=== PATIENT | female | born 1960 | race Caucasian/White ===

== ENCOUNTER → 2019-05-01 | Outpatient (CLI) | payer OTHER, SELFPAY | PROVIDERS: Family Provider Internal Medicine; PCP Internal Medicine; Referring Provider Internal Medicine Rheumatology; Visit Provider Internal Medicine Rheumatology | DX: M81.0 Age-related osteoporosis without current pathological fracture (principal) | CPT/HCPCS: 36415; 82310 ==

== ENCOUNTER → 2019-11-03 09:20 | Outpatient (BNVA) | payer OTHER, SELFPAY | PROVIDERS: Family Provider Internal Medicine; PCP Internal Medicine; Visit Provider Internal Medicine Rheumatology | DX: M81.0 Age-related osteoporosis without current pathological fracture (principal) | CPT/HCPCS: 82310; 82565 ==

== ENCOUNTER 2019-11-11 15:41 | Outpatient (CLI) | payer OTHER, SELFPAY ==
[2019-11-10 14:00] VITALS: BP 115/72; PULSE 71; RESP 16; TEMP 36.6; O2SAT 98
[2019-11-10] MEDS: denosumab 60 mg SDV SUBCUT (14:10)
[2019-11-10 14:31] VITALS: BP 132/92; PULSE 88; RESP 16; TEMP 36.6; O2SAT 99
== END 2019-11-11 15:42 | disposition home or self-care (01) ==
LOC: RHEOACUTE 15:42
PROVIDERS: Family Provider Internal Medicine; PCP Internal Medicine; Visit Provider Internal Medicine Rheumatology
DX: M81.0 Age-related osteoporosis without current pathological fracture (principal)
CPT/HCPCS: 96372; J0897

== ENCOUNTER → 2020-05-16 13:30 | Outpatient (BNVA) | payer OTHER, SELFPAY | PROVIDERS: Family Provider Internal Medicine; PCP Internal Medicine; Visit Provider Internal Medicine Rheumatology | DX: M81.0 Age-related osteoporosis without current pathological fracture (principal) | CPT/HCPCS: 36415; 82310 ==

== ENCOUNTER → 2020-09-25 18:20 | Outpatient (BNVA) | payer OTHER, SELFPAY | PROVIDERS: Family Provider Internal Medicine; PCP Internal Medicine; Visit Provider Nurse Practitioner Family | DX: N39.0 Urinary tract infection, site not specified (principal); B37.3 Candidiasis of vulva and vagina | CPT/HCPCS: 81000; 87086 ==

== ENCOUNTER → 2020-12-13 16:25 | Outpatient (BNVA) | payer OTHER, SELFPAY | PROVIDERS: Family Provider Internal Medicine; PCP Internal Medicine; Visit Provider Nurse Practitioner | DX: Z20.822 Contact with and (suspected) exposure to COVID-19 (principal) | CPT/HCPCS: 87635 ==

== ENCOUNTER 2021-02-13 08:19 | Outpatient (CLI) | payer OTHER, SELFPAY ==
[2021-02-13 09:43] LABS: Calcium 8.9 mg/dL (8.5-10.5)
== END 2021-02-13 08:20 | disposition home or self-care (01) ==
LOC: ONCMED 08:22
PROVIDERS: PCP Internal Medicine; Visit Provider Internal Medicine Medical Oncology
DX: M81.0 Age-related osteoporosis without current pathological fracture (principal)
CPT/HCPCS: 36415; 82310

== ENCOUNTER 2021-02-14 06:38 | Outpatient (CLI) | payer OTHER, SELFPAY ==
[2021-02-14 08:52] LABS: Anion Gap 12.7 (5-19); Blood Urea Nitrogen 16 mg/dL (8-23); Calcium 9.1 mg/dL (8.5-10.5); Carbon Dioxide 25 mmol/L (22-29); Chloride 105 mmol/L (98-107); Glomerular Filtration Rate 85.1 mL/min (90-130); Glucose 88 mg/dL (65-115); Osmolality Calculated 289 mOsm/kg (285-295); Potassium 3.7 mmol/L (3.5-5.1); Sodium 139 mmol/L (136-145)
[2021-02-14 10:55] VITALS: BP 121/82; PULSE 63; RESP 18; TEMP 36.9; O2SAT 98
[2021-02-14] MEDS: denosumab 60 mg SDV SUBCUT (11:02)
[2021-02-14 11:16] VITALS: BP 119/78; PULSE 57; RESP 18; TEMP 37.2; O2SAT 98
== END 2021-02-14 06:39 | disposition home or self-care (01) ==
LOC: ONCMED 06:42
PROVIDERS: Internal Medicine Medical Oncology; PCP Internal Medicine; Referring Provider Internal Medicine; Visit Provider Internal Medicine
DX: M81.0 Age-related osteoporosis without current pathological fracture (principal)
CPT/HCPCS: 80048; 96372; J0897

== ENCOUNTER 2021-09-19 11:43 | Outpatient (CLI) | payer OTHER, SELFPAY ==
[2021-09-19 13:01] LABS: Albumin Level 4.4 g/dL (3.5-5.2); Calcium 9.4 mg/dL (8.5-10.5); Glomerular Filtration Rate 63.4 mL/min (90-130)
[2021-09-19 13:18] LABS: 25 Hydroxy Vitamin D 72 ng/mL (30-100)
== END 2021-09-19 11:44 | disposition home or self-care (01) ==
PROVIDERS: Internal Medicine Medical Oncology; PCP Internal Medicine; Referring Provider Internal Medicine; Visit Provider Internal Medicine
DX: Z01.89 Encounter for other specified special examinations (principal)
CPT/HCPCS: 36415; 82040; 82306; 82310; 82565

== ENCOUNTER 2021-09-20 10:56 | Outpatient (CLI) | payer OTHER, SELFPAY ==
[2021-09-20 11:08] VITALS: BP 122/79; PULSE 55; RESP 16; TEMP 36.7; O2SAT 99
[2021-09-20] MEDS: denosumab 60 mg SDV SUBCUT (11:29)
[2021-09-20 11:35] VITALS: BP 118/72; PULSE 55; RESP 16; TEMP 36.3; O2SAT 97
== END 2021-09-20 10:57 | disposition home or self-care (01) ==
LOC: ONCMED 10:56
PROVIDERS: PCP Internal Medicine; Referring Provider Internal Medicine; Visit Provider Internal Medicine
DX: M81.0 Age-related osteoporosis without current pathological fracture (principal)
CPT/HCPCS: 96372; J0897

== ENCOUNTER → 2021-10-28 14:14 | Outpatient (BNVA) | payer OTHER, SELFPAY | PROVIDERS: PCP Internal Medicine; Visit Provider Family Medicine Adult Medicine | DX: R39.9 Unspecified symptoms and signs involving the genitourinary system (principal); N39.0 Urinary tract infection, site not specified | CPT/HCPCS: 81000 ==

== ENCOUNTER 2022-03-28 10:00 | Outpatient (CLI) | payer OTHER, SELFPAY ==
[2022-03-28 10:57] LABS: Albumin Level 4.1 g/dL (3.5-5.2); Calcium 9.8 mg/dL (8.5-10.5); Creatinine Clr Calc Pharmacy 69.7301; Glomerular Filtration Rate 72.7 mL/min (90-130)
[2022-03-28 11:15] LABS: 25 Hydroxy Vitamin D > 100 ng/mL (30-100)
[2022-03-28 11:37] VITALS: BP 118/66; PULSE 56; RESP 18; TEMP 36.3; O2SAT 95
[2022-03-28] MEDS: denosumab 60 mg SDV SUBCUT (11:47)
[2022-03-28 11:56] VITALS: BP 111/75; PULSE 53; RESP 18; TEMP 36.3; O2SAT 96
== END 2022-03-28 10:01 | disposition home or self-care (01) ==
PROVIDERS: PCP Internal Medicine; Visit Provider Internal Medicine
DX: M81.0 Age-related osteoporosis without current pathological fracture (principal)
CPT/HCPCS: 36415; 82040; 82306; 82310; 82565; 96372; J0897

== ENCOUNTER 2022-11-02 08:46 | Oncology outpatient (recurring) (ONCR) | payer OTHER, SELFPAY ==
[2022-11-02 09:00] VITALS: BP 111/70; PULSE 58; RESP 16; TEMP 36.6; O2SAT 95
[2022-11-02] MEDS: denosumab 60 mg SDV SUBCUT (09:02)
== END 2022-11-09 23:59 | disposition home or self-care (01) ==
LOC: ONCMED 08:47
PROVIDERS: PCP Internal Medicine; Visit Provider Internal Medicine Medical Oncology
DX: M81.0 Age-related osteoporosis without current pathological fracture (principal)
CPT/HCPCS: 96372; J0897

== ENCOUNTER 2023-11-18 11:22 | Outpatient (CLI) | payer OTHER, SELFPAY ==
--- NOTE | 2023-11-18 11:32 | MM_ITS ---
WS: [id number] Bilateral screening 3D tomosynthesis digital mammogram, 11/18/2023 Clinical Data: SCREENING Comparison: 11/07/2022, 11/08/2021, 11/08/2020, 11/04/2019, 06/11/2018, 02/20/2017, 08/06/2016, 02/21/2016, 02/02/2015, 02/04/2014, 07/30/2013, 01/29/2013, 01/08/2013. Findings: The breast parenchymal pattern shows fibroglandular tissue. No spiculated masses or clustered calcifi cations are seen. There are no secondary signs of carcinoma. MM/[place] [id number] Impression: 1. Negative bilateral mammogram unchanged. 2. Recommend annual screening mammograms. BIRADS: 1-Negative FOLLOW UP: 1 Year Follow-up The CAD lap checker was used.
== END 2023-11-18 11:23 | disposition home or self-care (01) ==
LOC: RAD 11:23
PROVIDERS: PCP Internal Medicine; Visit Provider Advanced Practice Midwife
DX: Z12.31 Encounter for screening mammogram for malignant neoplasm of breast (principal)
CPT/HCPCS: 77063; 77067

== ENCOUNTER 2024-10-09 09:36 | Emergency (ER) | payer MEDICARE, SELFPAY ==
[2024-10-09 09:51] VITALS: BP 130/78; PULSE 55; RESP 14; O2SAT 97; BMI 24.0
--- NOTE | 2024-10-09 09:56 | ECG_ITS ---
[facility] Test Date: 2024-10-09 Pat Name: Duyen Garcia Department: Room: Gender: Female Manager Company: : 1960 Requested By: Declan Mendes Order Number: [id number] Eric MD: Cesar Alvarez M.D. Measurements Intervals [place] Rate: 51 P: -10 HI: 98 QRS: 15 QRSD: 80 T: 28 QT: 442 QTc: 411 Interpretive Statements SINUS BRADYCARDIA WITH SHORT HI INTERVAL LOW QRS VOLTAGE IN PRECORDIAL LEADS [QRS DEFLECTION < 1.0 mV IN CHEST LEADS] No previous ECG available for comparison Electronically Signed On 10-13-2024 11:46:30 CDT by Cesar Alvarez M.D. [email or web address] [id number]
--- NOTE | 2024-10-09 09:56 | XR_ITS ---
WS: [id number] Portable AP upright chest, 10/09/2024 Clinical Data: dyspnea/cough Comparison: None. Findings: No nodules, masses or effusions are seen. The heart is normal. The pulmonary vascularity is not increased. No pneumonia or pneumothorax is seen. XR/XR chest 1V portable [id number] Impression: Negative chest.
--- NOTE | 2024-10-09 10:07 | W.ED.WEAKNES ---
HPI - Weakness General: Chief complaint: Weakness Stated complaint: weakness (sent by angie) Time Seen by Provider: 10/09/24 09:47 History of Present Illness: 64-year-old female presents emergency room complaining of generalized feeling weak fatigued shaky at times. She has not had any vomiting or recent diarrhea no dysuria urgency or frequency no shortness of breath no chest pain no abdominal pain. She has had some mild sinus drainage no other symptoms no recent medication changes. Associated symptoms: Denies chest pain, chills, dysuria or fever(s) Review of Systems Const: Denies: fever(s) or chills Card: Denies: chest pain Resp: Denies: dyspnea GI: Denies: abdominal pain : Denies: dysuria, urinary frequency or urinary urgency Musc: Denies: neck pain or back pain Skin/Breast: Denies: rash PFSH ED PFSH: Social History Smoking and tobacco/nicotine status: never used tobacco/nicotine Second hand smoke exposure: No Alcohol intake: never Substance/Drug Use: never Physical Exam Const: COMMON NORMALS: no acute distress GENERAL APPEARANCE: cooperative and comfortable ORIENTATION/CONSCIOUSNESS: Yes awake, Yes oriented to person, Yes oriented to place and Yes oriented to time HENMT: COMMON NORMALS: normocephalic, atraumatic and hearing grossly normal bilaterally HEAD & SCALP: normocephalic and atraumatic Resp: COMMON NORMALS: normal respiratory effort, No retractions, No use of accessory muscles and clear to auscultation bilaterally AUSCULTATION: clear to auscultation bilaterally Cardio: COMMON NORMALS: regular rhythm and No murmurs present (Cardio) RATE: bradycardic RHYTHM: regular rhythm GI: COMMON NORMALS: Soft to palpation and No hepatosplenomegaly present AUSCULTATION: Yes normoactive bowel sounds PALPATION: Yes Soft to palpation, No Tenderness to palpation present (GI), No Guarding due to palpation present (GI) and Yes No hepatosplenomegaly present Extremity: COMMON NORMALS: normal to inspection, capillary refill normal, no clubbing, cyanosis or edema, no calf tenderness and no pedal edema Neuro: SENSORIUM/ORIENTATION: Yes oriented to person, Yes oriented to place and Yes oriented to time Skin: COMMON NORMALS: no rashes or lesions noted GENERAL SKIN EXAM: no rashes or lesions noted Course Vital Signs: Vital signs: Vital Signs Pulse Rate 49 L 10/09/24 11:30 Respiratory Rate 14 10/09/24 11:30 Blood Pressure 126/75 10/09/24 11:30 Pulse Oximetry 96 10/09/24 11:30 MDM - Weakness Medical Decision Making Patient noted to be fairly bradycardic while here. Laboratory tests are generally unremarkable. She is not anemic there is no sign of infection. We did cardiac enzymes all of which were negative EKG showed sinus bradycardia without abnormality. Will discharge patient home I suspect her symptoms are due to side effects from medications particularly the propranolol. That was started several years ago for anxiety. She reports evidently having lost little bit of weight and think that may have made her more sensitive to it or given her more side effects. She is on a low dose at this point. Would recommend that she simply stop it and follow-up with her primary care doctor. Medical Records I reviewed the patient's medical records. Lab Data I reviewed the patient's lab results. 10/09/24 10:04 10/09/24 10:04 Radiology Impressions Chest X-Ray 10/09/24 09:56 Impression: Negative chest. Laboratory Results WBC 4.65 10^3/uL (3.29-11.43) 10/09/24 10:04 RBC 4.52 10^6/uL (3.85-5.65) 10/09/24 10:04 Hgb 14.70 g/dL (11.27-16.99) 10/09/24 10:04 Hct 45.2 % (36-47) 10/09/24 10:04 MCV 100.0 fl (85-98) H 10/09/24 10:04 MCH 32.5 pg (27-33) 10/09/24 10:04 MCHC 32.5 g/dL (30-55) 10/09/24 10:04 RDW 12.6 % (12.1-15.1) 10/09/24 10:04 Plt Count 213 10^3/cmm (157-399) 10/09/24 10:04 MPV 9.5 fL (7.4-10.4) 10/09/24 10:04 Neut % (Auto) 49.9 % 10/09/24 10:04 Lymph % (Auto) 38.3 % 10/09/24 10:04 [place] % (Auto) 9.5 % 10/09/24 10:04 Eos % (Auto) 1.5 % 10/09/24 10:04 Baso % (Auto) 0.6 % 10/09/24 10:04 Neut # (Auto) 2.32 10^3/uL (1.8-7.7) 10/09/24 10:04 Lymph # (Auto) 1.8 10^3/uL (0.8-4.8) 10/09/24 10:04 [place] # (Auto) 0.4 10^3/uL (0.2-0.9) 10/09/24 10:04 Eos # (Auto) 0.1 10^3/uL (0.0-0.8) 10/09/24 10:04 Baso # (Auto) 0.0 10^3/uL (0.0-0.1) 10/09/24 10:04 Nucleated RBC % (auto) 0 % 10/09/24 10:04 Nucleated RBCs # 0.0 /100WBC 10/09/24 10:04 Sodium 141 mmol/L (136-145) 10/09/24 10:04 Potassium 4.3 mmol/L (3.5-5.1) 10/09/24 10:04 Chloride 106 mmol/L (98-107) 10/09/24 10:04 Carbon Dioxide 21 mmol/L (22-29) L 10/09/24 10:04 Anion Gap 18.3 (5-19) 10/09/24 10:04 BUN 18 mg/dL (8-23) 10/09/24 10:04 Creatinine 0.7 mg/dL (0.5-0.9) 10/09/24 10:04 GFR Calculation 84.0 mL/min (90-130) L 10/09/24 10:04 Glucose 96 mg/dL (65-115) 10/09/24 10:04 Calculated Osmolality 294 mOsm/kg (285-295) 10/09/24 10:04 Calcium 8.9 mg/dL (8.5-10.5) 10/09/24 10:04 Total Bilirubin 0.3 mg/dL (0.15-1.2) 10/09/24 10:04 AST 21 U/L (0-32) 10/09/24 10:04 ALT 15 U/L (0-33) 10/09/24 10:04 Alkaline Phosphatase 89 U/L (35-105) 10/09/24 10:04 Troponin T Baseline 7 ng/L (0-10) 10/09/24 10:04 Troponin T 120 Minute < 6.0 ng/L (0-10) 10/09/24 11:48 Delta Troponin T -[id number] ABS# (0-10) L 10/09/24 11:48 Total Protein 6.1 g/dL (6.6-8.7) L 10/09/24 10:04 Albumin 4.1 g/dL (3.5-5.2) 10/09/24 10:04 Globulin 2.0 g/dL (1.3-4.6) 10/09/24 10:04 Urine Color Yellow (Yellow) 10/09/24 10:16 Urine Appearance Clear (CLEAR) 10/09/24 10:16 Urine pH 8.0 (5-7) A 10/09/24 10:16 Ur Specific [place] 1.016 (1.005-1.030) 10/09/24 10:16 Urine Protein Negative (Negative) 10/09/24 10:16 Urine Glucose (UA) Negative (Normal) 10/09/24 10:16 Urine Ketones Negative (Negative) 10/09/24 10:16 Urine Blood Negative (Negative) 10/09/24 10:16 Urine Nitrate Negative (Negative) 10/09/24 10:16 Urine Bilirubin Negative (Negative) 10/09/24 10:16 Urine Urobilinogen 0.2 mg/dL (Negative) 10/09/24 10:16 Ur Leukocyte Esterase Negative (Negative) 10/09/24 10:16 Urine RBC 0-2 /hpf (0-2) 10/09/24 10:16 Urine WBC 0-5 /hpf (0-5) 10/09/24 10:16 Ur Squamous Epith Cells 0-5 /hpf (0-5) 10/09/24 10:16 Amorphous Sediment Not Reportable 10/09/24 10:16 Urine Bacteria None seen /hpf (NONE) 10/09/24 10:16 Hyaline Casts 0.40 /lpf 10/09/24 10:16 Influenza A (PCR) Negative (Negative) 10/09/24 10:16 Influenza Type B (PCR) Negative (Negative) 10/09/24 10:16 RSV (PCR) Negative (Negative) 10/09/24 10:16 SARS-CoV-2 (PCR) Negative (Negative) 10/09/24 10:16 All radiology interpretation(s) finalized by discharge EKG Data EKG 1: Interpretation: EKG 530 2025-02-13 sinus bradycardia MN interval of 98 rate of 51 QT [address] changes EKG 2: Interpretation: EKG 10/09/2024 1158 sinus bradycardia rate of 49 MN interval 102 QT [address] changes unchanged from EKG done earlier same day Discharge Plan Discharge Patient Disposition: Home Clinical Impression: Weakness, Bradycardia, Medication side effects Condition: Stable Prescriptions: Discontinued propranolol 10 mg tablet 10 mg PO DAILY No Action loperamide 2 mg capsule 2 mg PO Q6H PRN (Reason: Diarrhea) tamsulosin 0.4 mg capsule 0.4 mg PO DAILY PRN (Reason: Urinary Retention) pantoprazole 40 mg tablet,delayed release (DR/EC) 40 mg PO DAILY buspirone 10 mg tablet 10 mg PO TID gabapentin 100 mg capsule 200 mg PO TID ondansetron 4 mg tablet,disintegrating 4 mg PO Q8H PRN (Reason: Nausea) sertraline 50 mg tablet 50 mg PO DAILY dicyclomine 10 mg capsule 10 mg PO QID PRN (Reason: Abdominal Pain) Discharge Orders: Discharge ED (Routine); Ordered 10/09/24 Ordered By: Declan Zapata Referrals: Johnnie Dobson DO [Primary Care Provider, Family Practice] Discharge Diet: Usual diet Discharge Activity: Resume usual activity Patient Instructions: Opioid Safety, Pain Management Activity Restrictions/Additional Instructions: Thank you for choosing [facility] for your healthcare needs today. It is very important that you follow up as instructed or that you return to the Emergency Department should you have concerns or if your condition changes or worsens in any way. You are seen in the emergency room with complaint of weakness. Your laboratory studies vital signs were all normal including heart enzymes. Suspect the cause of your weakness in your symptoms is your medications. Your heart rate is low which is a result of the propranolol would recommend that you stop this medication and follow-up with your primary care doctor. Print Language: Thai Coding Level of Care Code ED Taper Printed Circuit Layout for Chg Fwd Related Data Home Medications ?Medication ?Instructions ?Recorded ?Confirmed buspirone 10 mg tablet 10 mg PO TID 10/09/24 10/09/24 dicyclomine 10 mg capsule 10 mg PO QID PRN Abdominal Pain 10/09/24 10/09/24 gabapentin 100 mg capsule 200 mg PO TID 10/09/24 10/09/24 loperamide 2 mg capsule 2 mg PO Q6H PRN Diarrhea 10/09/24 10/09/24 ondansetron 4 mg disintegrating 4 mg PO Q8H PRN Nausea 10/09/24 10/09/24 tablet pantoprazole 40 mg tablet,delayed 40 mg PO DAILY 10/09/24 10/09/24 release sertraline 50 mg tablet 50 mg PO DAILY 10/09/24 10/09/24 tamsulosin 0.4 mg capsule 0.4 mg PO DAILY PRN Urinary 10/09/24 10/09/24 Retention Allergies Allergy/AdvReac Type Severity Reaction Status Date / Time No Known Allergies Allergy Verified 10/09/24 09:51
[2024-10-09 10:13] LABS: Basophils % 0.6 %; Eosinophils # 0.1 10^3/uL (0.0-0.8); Eosinophils % 1.5 %; Hematocrit 45.2 % (36-47); Lymphocytes # 1.8 10^3/uL (0.8-4.8); Lymphocytes % 38.3 %; Mean Corpuscular HGB Conc 32.5 g/dL (30-55); Mean Corpuscular Hemoglobin 32.5 pg (27-33); Mean Platelet Volume 9.5 fL (7.4-10.4); Monocytes # 0.4 10^3/uL (0.2-0.9); Monocytes % 9.5 %; Neutrophils # 2.32 10^3/uL (1.8-7.7); Neutrophils % 49.9 %; Nucleated Red Blood Cells % 0 %; Platelet Count 213 10^3/cmm (157-399); Red Blood Count 4.52 10^6/uL (3.85-5.65); Red Cell Distribution Width 12.6 % (12.1-15.1); White Blood Count 4.65 10^3/uL (3.29-11.43)
[2024-10-09 10:24] VITALS: BP 118/68; PULSE 54; O2SAT 97
[2024-10-09 10:31] LABS: Bilirubin Urine Negative (Negative); Blood Urine Negative (Negative); Glucose Urine UA Negative (Normal); Ketones Urine Negative (Negative); Leukocyte Esterase Urine Negative (Negative); Nitrate Urine Negative (Negative); Protein Urine Negative (Negative); Specific Gravity, Urine 1.016 (1.005-1.030); Urine Appearance Clear (CLEAR); Urine Color Yellow (Yellow); Urobilinogen Urine 0.2 mg/dL (Negative)
[2024-10-09 10:35] LABS: Alanine Aminotransferase 15 U/L (0-33); Albumin Level 4.1 g/dL (3.5-5.2); Alkaline Phosphatase 89 U/L (35-105); Anion Gap 18.3 (5-19); Aspartate Amino Transferase 21 U/L (0-32); Blood Urea Nitrogen 18 mg/dL (8-23); Calcium 8.9 mg/dL (8.5-10.5); Carbon Dioxide 21 mmol/L (22-29); Chloride 106 mmol/L (98-107); Creatinine Clr Calc Pharmacy 64.4375; Glucose 96 mg/dL (65-115); Osmolality Calculated 294 mOsm/kg (285-295); Potassium 4.3 mmol/L (3.5-5.1); Sodium 141 mmol/L (136-145); Total Bilirubin 0.3 mg/dL (0.15-1.2); Total Protein 6.1 g/dL (6.6-8.7)
[2024-10-09 10:36] LABS: Add Urine Microscopic? YES; Bacteria Urine None Seen /hpf; RBC Urine 0-2 /hpf (0-2); Squamous Epithelial Cell Urine 0-5 /hpf (0-5); WBC Urine 0-5 /hpf (0-5)
[2024-10-09 10:36] LABS: Troponin(5th) Baseline 7 ng/L (0-10)
[2024-10-09 11:01] LABS: Influenza A NEGATIVE (Negative); Influenza B NEGATIVE (Negative); Respiratory Syncytial Virus Ce NEGATIVE (Negative); SARS-CoV-2 PCR NEGATIVE (Negative)
[2024-10-09 11:30] VITALS: BP 126/75; PULSE 49; RESP 14; O2SAT 96
--- NOTE | 2024-10-09 11:58 | ECG_ITS ---
[facility] Test Date: 2024-10-09 Pat Name: Duyen Garcia Department: Room: Gender: Female Child Development Director: : 1960 Requested By: Declan Mendes Order Number: [id number] Reading MD: SHEREEN WADSWORTH Measurements Intervals [place] Rate: 49 P: 0 NE: 102 QRS: 15 QRSD: 82 T: 14 QT: 459 QTc: 415 Interpretive Statements SINUS BRADYCARDIA WITH SHORT NE INTERVAL LOW QRS VOLTAGE IN PRECORDIAL LEADS [QRS DEFLECTION < 1.0 mV IN CHEST LEADS] Compared to ECG 10/09/2024 10:04:31 No significant changes Electronically Signed On 10-14-2024 22:59:19 CDT by SHEREEN WADSWORTH [email or web address]
[2024-10-09 12:14] LABS: Troponin 5 2HR < 6.0 ng/L (0-10)
[2024-10-09 12:19] LABS: Troponin 5 2HR Delta -1.00001 ABS# (0-10)
[2024-10-09 12:46] VITALS: BP 154/88; PULSE 50; RESP 17; O2SAT 98
== END 2024-10-09 12:48 | disposition home or self-care (01) ==
PROVIDERS: Emergency Provider Family Medicine; PCP Family Medicine
DX: R53.1 Weakness (principal); R00.1 Bradycardia, unspecified; T50.995A Adverse effect of other drugs, medicaments and biological substances, initial encounter; X58.XXXA Exposure to other specified factors, initial encounter; Z11.52 Encounter for screening for COVID-19
CPT/HCPCS: 36415; 71045; 80053; 81001; 84484; 85025; 87637; 93005; 99285

== ENCOUNTER 2025-01-06 09:41 | Outpatient (CLI) | payer MEDICARE, SELFPAY ==
--- NOTE | 2025-01-06 09:40 | MM_ITS ---
WS: [id number] BILATERAL SCREENING DIGITAL TOMOSYNTHESIS MAMMOGRAM WITH CAD HISTORY: Z12.39 - Encounter for other screening for malignant neop... COMPARISON: 11/18/2023, 11/08/2022 Bilateral CC and MLO views with tomosynthesis and synthetic mammography submitted. Computer aided detection analyzed. Breast composition: There are scattered areas of fibroglandular density. No suspicious masses, microcalcifications or architectural distortion. Benign scattered calcifications in each breast. MM/MM scr BI tomosynthesis [id number] IMPRESSION: BI-RADS: 2 - Benign. FOLLOW UP: 1 Year Follow-up
== END 2025-01-06 09:42 | disposition home or self-care (01) ==
LOC: RAD 09:42
PROVIDERS: PCP Family Medicine; Visit Provider Family Medicine
DX: Z12.31 Encounter for screening mammogram for malignant neoplasm of breast (principal); R92.323 Mammographic fibroglandular density, bilateral breasts
CPT/HCPCS: 77063; 77067

== ENCOUNTER 2025-03-19 11:36 | Outpatient (CLI) | payer MEDICARE, SELFPAY ==
[2025-03-19 12:15] LABS: Hematocrit 44.8 % (36-47); Hemoglobin 15.10 g/dL (11.27-16.99); Mean Corpuscular HGB Conc 33.7 g/dL (30-55); Mean Corpuscular Hemoglobin 33.0 pg (27-33); Mean Corpuscular Volume 97.8 fl (85-98); Nucleated Red Blood Cells % 0 %; Platelet Count 257 10^3/cmm (157-399); Red Blood Count 4.58 10^6/uL (3.85-5.65); White Blood Count 7.12 10^3/uL (3.29-11.43)
[2025-03-19 12:46] LABS: Alanine Aminotransferase 22 U/L (0-33); Albumin Level 4.5 g/dL (3.5-5.2); Alkaline Phosphatase 82 U/L (35-105); Anion Gap 17.1 (5-19); Aspartate Amino Transferase 26 U/L (0-32); Blood Urea Nitrogen 27 mg/dL (8-23); Calcium 9.4 mg/dL (8.5-10.5); Carbon Dioxide 23 mmol/L (22-29); Chloride 102 mmol/L (98-107); Free T4 Free Thyroxine 1.37 ng/dL (0.82-1.77); Globulin 2.6 g/dL (1.3-4.6); Glucose 86 mg/dL (65-115); Osmolality Calculated 290 mOsm/kg (285-295); Potassium 4.1 mmol/L (3.5-5.1); Sodium 138 mmol/L (136-145); Thyroid Stimulating Hormone 1.84 uIU/mL (0.27-4.20); Total Protein 7.1 g/dL (6.6-8.7)
[2025-03-19 14:45] LABS: Vitamin B12 > 2000 pg/mL (232-1245)
== END 2025-03-19 11:37 | disposition home or self-care (01) ==
PROVIDERS: PCP Family Medicine; Visit Provider Family Medicine
DX: R53.83 Other fatigue (principal); E03.9 Hypothyroidism, unspecified
CPT/HCPCS: 36415; 80053; 82607; 84439; 84443; 84480; 85025